=== PATIENT | female | born 1980 | race Hispanic/Latino ===

== ENCOUNTER → 2020-10-15 | Outpatient (CLI) | payer BC | END | disposition home or self-care (01) | LOC: RAH 14:47 | PROVIDERS: ATTEND Family Medicine | DX: Z12.31 Encounter for screening mammogram for malignant neoplasm of breast (principal); N64.89 Other specified disorders of breast | CPT/HCPCS: 77067 ==

== ENCOUNTER → 2022-08-02 | Outpatient (CLI) | payer BC | END | disposition home or self-care (01) | LOC: RAH 10:14 | PROVIDERS: ATTEND Family Medicine | DX: K76.0 Fatty (change of) liver, not elsewhere classified (principal); R19.00 Intra-abdominal and pelvic swelling, mass and lump, unspecified site | CPT/HCPCS: 76700 ==

== ENCOUNTER → 2023-05-08 | Outpatient (CLI) | payer BC | END | disposition home or self-care (01) | LOC: RAH 10:53 | PROVIDERS: ATTEND Family Medicine | DX: Z12.31 Encounter for screening mammogram for malignant neoplasm of breast (principal) | CPT/HCPCS: 77067 ==

== ENCOUNTER → 2024-05-13 | Outpatient (CLI) | payer BC | END | disposition home or self-care (01) | LOC: RAH 10:50 | PROVIDERS: ATTEND Family Medicine | DX: Z12.31 Encounter for screening mammogram for malignant neoplasm of breast (principal); R92.333 Mammographic heterogeneous density, bilateral breasts | CPT/HCPCS: 77067 ==

== ENCOUNTER → 2025-05-14 | Outpatient (CLI) | payer BC | END | disposition home or self-care (01) | LOC: RAH 09:00 | PROVIDERS: ATTEND Family Medicine | DX: Z12.31 Encounter for screening mammogram for malignant neoplasm of breast (principal) | CPT/HCPCS: 77063; 77067 ==